=== PATIENT | female | born 1985 | race Caucasian/White ===

== ENCOUNTER 2020-07-28 17:13 | Emergency (ER) | payer OTHER ==
[~2020-07-28] VITALS: Ht 160 cm; Wt 76.3 kg
[2020-07-28 17:18] VITALS: BP 114/72
[2020-07-28 18:21] LABS: BASOPHILS % (AUTO) 0.5 % (0.0-2.0); EOSINOPHILS # (AUTO) 0.1 K/uL (0-0.4); EOSINOPHILS % (AUTO) 1.3 % (0.0-4.0); HEMATOCRIT 31.6 % (36-48); HEMOGLOBIN 10.6 g/dL (12.0-16.0); LYMPHOCYTES # (AUTO) 1.5 K/uL (2.5-16.5); MEAN CORPUSCULAR HEMOGLOBIN 29 pg (27-31); MEAN CORPUSCULAR HGB CONC 34 g/dL (33-37); MEAN CORPUSCULAR VOLUME 85.2 fL (80-94); MONOCYTES # (AUTO) 0.5 K/uL (0.8-1.0); MONOCYTES % (AUTO) 5.4 % (1.7-9.3); NEUTROPHILS # (AUTO) 7.8 K/uL (1.8-7.7); NEUTROPHILS % (AUTO) 77.8 % (42.2-75.2); PLATELET COUNT (AUTO) 135 K/uL (140-450); RED BLOOD CELL COUNT(AUTO) 3.71 MIL/uL (4.20-5.40); RED CELL DISTRIBUTION WIDTH 15.5 % (11.6-13.7)
[2020-07-28 18:23] LABS: APPEARANCE,URINE CLEAR (CLEAR); BILIRUBIN,URINE NEGATIVE (NEGATIVE); BLOOD, URINE 3+ (NEGATIVE); LEUKOCYTE ESTERASE ,URINE NEGATIVE (NEGATIVE); NITRITE, URINE NEGATIVE (NEGATIVE); UGLUCOSE NEGATIVE (NEGATIVE)
[2020-07-28 18:32] LABS: COLOR,URINE AMBER (YELLOW)
[2020-07-28 18:36] LABS: PROTHROMBIN TIME 9.4 secs (10.8-13.4)
[2020-07-28 18:42] LABS: RBC,URINE >100 /HPF (0-5); WBC,URINE NONE SEEN /HPF (0-5)
[2020-07-28 21:12] VITALS: BP 101/53
== END 2020-07-28 21:12 | disposition home or self-care (01) ==
LOC: MED 17:13
DX: O46.8X2 Other antepartum hemorrhage, second trimester (principal); Z3A.18 18 weeks gestation of pregnancy
CPT/HCPCS: 36415; 76805; 81001; 84702; 85025; 85610; 85730; 86901; 87070; 87210; 99284; J7060